=== PATIENT | female | born 1975 | race Caucasian/White ===

== ENCOUNTER → 2017-03-02 | Day surgery (SDC) | payer BC ==
[~2017-03-02] VITALS: Ht 157.5 cm; Wt 87.3 kg
[~2017-03-02] MED LIST: *MEPERIDINE 25 MG INJ VIAL PERIprocedural Use ONLY ONE; BUPIVACAINE HCL PF 0.25% 30 ML VIAL OTHER ONE; KETOROLAC TROMETHAMINE 60 MG/2 ML (IM) VIAL IM ONE; LACTATED RINGER'S 1000 ML INJ 1,000 ML ONE; ONDANSETRON HCL 4 MG/2 ML VIAL IV PUSH ONE; ONETAB13 PO; PROPOFOL 200 MG/20 ML AMP IV ONE; TRINTAB7 PO; VITA-136 PO; VITA100064 PO; oxyCODONE/ACETAMINOPHEN 5 MG/325 MG TAB ONE
[2017-03-02 08:59] VITALS: BP 125/56; PULSE 67; RESP 20; TEMP 98.2; O2SAT 98
[2017-03-02 11:23] VITALS: PULSE 85
[2017-03-02 12:15] VITALS: PULSE 76; TEMP 97.7
[2017-03-02 13:25] VITALS: BP 133/64; PULSE 80; RESP 14; O2SAT 98
--- NOTE | 2017-03-02 18:47 | PD.OP ---
Operative Report Date of Surgery: Mar 02, 2017 Preoperative Diagnosis: Female sterilization Postoperative Diagnosis: Female sterilization Procedure: Laparoscopic application of Falope rings Anesthesia: general endotracheal, Dr. Reyes Surgeon: Vania Hunt Private Duty Nurse(s): Michelle Resident Surgeon: n/a Operation and Findings: After induction of general anesthesia and intubation, the patient was positioned in dorso-lithotomy position in low stirrups, prepped and draped. An open-sided speculum was used to visualize the cervix, and a [employer] uterine manipulator was introduced in the cervix. The speculum was removed, I re-gloved , and attention was then turned to the abdomen. A 5 mm incision was made in a crease in the umbilicus, and the Veress needle was inserted. 2.5 liters of CO2 were instilled without difficulty. A bladeless trocar was used to introduce the umbilical post for the camera. Then, using anatomic landmarks and transillumination to avoid major vessels, an 8 mm port was introduced using a bladeless 8 mm trocar in the left lower quadrant. The patient was then placed in Trendelenburg.Using a grasper and the uterine manipulator, normal anatomy was verified, including a full length view of both Fallopian tubes. The Falope Ring applicator was loaded according to seat scooper machine 's directions. The left Fallopian tube was grasped in its midportion and the instrument fired, but the ring failed to deploy. The left Fallopian tube was torn in the attempt. New rings were requested while the right Fallopian tube was grasped in a similar manner in the mid-portion. This time the ring applicator deployed properly with inclusion of the entire thickness of the tube in the isolated "knuckle" of tube was verified by inspection with appropriate blanching noted. The left Fallopian tube was then ligated in a similar manner medial to the small rent in the tube, with good transection and good blanching again noted. A third ring was applied successfully to the distal end of the rent to control any possible bleeding from the site. There was minimal bleeding during the case. The procedure being complete, the left port was removed under laparoscopic visualization, the pneumoperitoneum was released, and the umbilical port was removed. The skin incisions were closed subcuticularly with 4-0 Monocryl and sealed with Dermabond. The uterine manipulator was removed. The patient was replaced supine, awakened, extubated, and transferred to the recovery room in stable condition and breathing on her own. Vania Hunt MD Mar 02, 2017 18:46
== END | disposition home or self-care (01) ==
LOC: PHSDC 06:51
PROVIDERS: ATTEND Obstetrics & Gynecology
DX: Z30.2 Encounter for sterilization (principal); E66.9 Obesity, unspecified; Z68.35 Body mass index [BMI] 35.0-35.9, adult
CPT/HCPCS: 58671; J1885; J2175; J2405; J3010; J7120